=== PATIENT | female | born 1955 | race Caucasian/White ===

== ENCOUNTER 2019-08-02 10:54 | Outpatient (CLI) | payer MEDICARE, BC, SELFPAY ==
--- NOTE | 2019-08-02 11:12 | XR_ITS ---
WS: [id number] Bone mineral density performed on a ElastifileXA, 08/02/2019 Clinical data: OSTEOPOROSIS comparison study: DEXA scan, 07/01/2017. Findings: The first 4 lumbar vertebral bodies demonstrated the bone mineral density of 1.021 g/cm2 for a young adult T score of -1.3. Measurement of the left hip reveals a bone mineral density of 0.718 g/cm2 with a young adult T score of -2.3. Measurement of the right hip reveals the bone mineral density of 0.734 g/cm2 for young adult T score of -2.2. XR/XR DEXA axial skeleton* [id number] Impression: 1. Osteopenia of the lumbar spine and both hips. 2. Slight improvement compared to previous study.
== END 2019-08-02 10:55 | disposition home or self-care (01) ==
LOC: RADWPI 11:00
PROVIDERS: Family Provider Family Medicine; PCP Family Medicine; Referring Provider Family Medicine; Visit Provider Family Medicine
DX: M81.0 Age-related osteoporosis without current pathological fracture (principal); M85.88 Other specified disorders of bone density and structure, other site; M85.89 Other specified disorders of bone density and structure, multiple sites
CPT/HCPCS: 77080

== ENCOUNTER 2019-08-22 13:01 | Outpatient (CLI) | payer MEDICARE, BC, SELFPAY ==
--- NOTE | 2019-08-22 13:22 | CT_ITS ---
WS: [id number] CT SINUSES TECHNIQUE: Noncontrast CT of the paranasal sinuses with coronal and sagittal reformatted images. CLINICAL INFORMATION: CHRONIC SINUSITIS COMPARISON: None. DLP: 315.[address] scans at [facility] use at least one of these dose optimization techniques: automat ed exposure control; mA and/or kV adjustment per patient size (includes targeted exams where dose is matched to clinical indication); or iterative reconstruction. FINDINGS: Right to left nasal septal deviation measuring 3.2 mm. Frontal sinuses are well aerated. Trace mucosa l thickening ethmoid air cells. Mild narrowing of the ostiomeatal units bilaterally. Mild polypoid mu cosal thickening in the maxillary sinuses measuring less than 5 mm bilaterally. Sphenoid sinuses are patent. Mastoid air cells well aerated. Normal posterior nasopharynx. Partially visualized intracrani al contents are normal. CT/CT sinus wo con* [id number] IMPRESSION: 1. Mild right to left nasal septal deviation measuring 3.2 mm. 2. Ostiomeatal units are patent. 3. Mild mucosal thickening in the ethmoid air cells and maxillary sinuses. 4. No air-fluid levels. 5. Mastoid air cells are well aerated.
== END 2019-08-22 13:02 | disposition home or self-care (01) ==
LOC: RADWPI 13:07
PROVIDERS: Family Provider Family Medicine; PCP Family Medicine; Visit Provider Family Medicine
DX: J32.9 Chronic sinusitis, unspecified (principal); J34.2 Deviated nasal septum
CPT/HCPCS: 70486

== ENCOUNTER → 2019-09-06 15:49 | Outpatient (BNVA) | payer MEDICARE, BC, SELFPAY | PROVIDERS: Family Provider Family Medicine; PCP Family Medicine; Referring Provider Family Medicine; Visit Provider Otolaryngology | DX: J32.9 Chronic sinusitis, unspecified (principal); J34.2 Deviated nasal septum; J34.3 Hypertrophy of nasal turbinates; R09.82 Postnasal drip; J30.9 Allergic rhinitis, unspecified | CPT/HCPCS: 96372; 99214; J3301 ==

== ENCOUNTER 2020-08-02 07:45 | Outpatient (CLI) | payer MEDICARE, BC, SELFPAY ==
--- NOTE | 2020-08-02 07:50 | MM_ITS ---
WS: [id number] BILATERAL DIGITAL DIAGNOSTIC MAMMOGRAM MAMMOGRAPHY WITH CAD CLINICAL INFORMATION: DISCHARGE FROM LEFT NIPPLE COMPARISON: None. TECHNIQUE: Bilateral CC, MLO, and ML views. FINDINGS: The breasts are composed of heterogeneous fibroglandular density, which can limit the detection of sm all underlying mass lesions. Punctate and lucent centered calcifications. Breast parenchyma appears unchanged from previous. Ultrasound is pending ULTRASOUND BREAST LEFT TECHNIQUE: Ultrasound left breast focused area of concern. CLINICAL INFORMATION: DISCHARGE FROM LEFT NIPPLE COMPARISON: None. FINDINGS: Ultrasound left areola in the area of concern. No evidence of pathologic mass or lesion. A few dilate d ducts are visualized. No focal lesions to target for biopsy. No other significant findings. MM/[place] [id number] IMPRESSION: BI-RADS: 2-Benign FOLLOW UP: 1 Year Follow-up Recommend return to annual screening mammography.
== END 2020-08-02 07:46 | disposition home or self-care (01) ==
LOC: RADSHAW 07:48
PROVIDERS: Family Provider Family Medicine; PCP Family Medicine; Visit Provider Family Medicine
DX: N64.52 Nipple discharge (principal)
CPT/HCPCS: 76642; 77066

== ENCOUNTER 2021-05-27 06:00 | Outpatient (RCR) | payer MEDICARE, BC, SELFPAY | END 2021-06-25 23:59 | disposition home or self-care (01) | LOC: GPT 06:00 | PROVIDERS: PCP Family Medicine; Visit Provider Orthopaedic Surgery | DX: S80.02XD Contusion of left knee, subsequent encounter (principal); X58.XXXD Exposure to other specified factors, subsequent encounter | CPT/HCPCS: 97032; 97110; 97112; 97116; 97161; 97530; 97760 ==

== ENCOUNTER 2021-06-26 06:00 | Outpatient (RCR) | payer MEDICARE, BC, SELFPAY | END 2021-07-26 23:59 | disposition home or self-care (01) | LOC: GPT 06:00 | PROVIDERS: PCP Family Medicine; Visit Provider Orthopaedic Surgery | DX: S80.02XA Contusion of left knee, initial encounter (principal); X58.XXXA Exposure to other specified factors, initial encounter | CPT/HCPCS: 97110; 97140 ==

== ENCOUNTER 2021-07-11 12:57 | Outpatient (CLI) | payer MEDICARE, BC, SELFPAY | END 2021-07-11 12:58 | disposition home or self-care (01) | LOC: LAB 12:57 | PROVIDERS: PCP Family Medicine; Visit Provider Family Medicine | DX: K52.9 Noninfective gastroenteritis and colitis, unspecified (principal) | CPT/HCPCS: 87506 ==

== ENCOUNTER 2021-07-27 06:00 | Outpatient (RCR) | payer MEDICARE, BC, SELFPAY | END 2021-08-26 23:59 | disposition home or self-care (01) | LOC: GPT 06:00 | PROVIDERS: PCP Family Medicine; Visit Provider Orthopaedic Surgery | DX: S80.02XD Contusion of left knee, subsequent encounter (principal); X58.XXXD Exposure to other specified factors, subsequent encounter | CPT/HCPCS: 97110; 97112 ==

== ENCOUNTER 2021-08-05 11:04 | Outpatient (CLI) | payer MEDICARE, BC, SELFPAY ==
--- NOTE | 2021-08-05 11:24 | MM_ITS ---
WS: [id number] BILATERAL DIGITAL SCREENING MAMMOGRAPHY WITH CAD CLINICAL INFORMATION: SCREENING HISTORY: Screening mammogram. No current complaints. COMPARISON: August 02, 2020 TECHNIQUE: Bilateral CC and MLO views. FINDINGS: The breasts are composed of heterogeneous fibroglandular density tissue, which can limit the detectio n of small underlying mass lesions. Lucent centered calcifications right breast. Stable cluster calci fications outer right breast. No suspicious mass, asymmetry, calcifications, or architectural distort ion. No evidence of malignancy. MM/[place] [id number] IMPRESSION: BI-RADS: 2-Benign FOLLOW UP: 1 Year Follow-up Recommend return to annual screening mammography.
== END 2021-08-05 11:05 | disposition home or self-care (01) ==
PROVIDERS: PCP Family Medicine; Visit Provider Family Medicine
DX: Z12.31 Encounter for screening mammogram for malignant neoplasm of breast (principal)
CPT/HCPCS: 77067

== ENCOUNTER 2021-08-27 06:00 | Outpatient (RCR) | payer MEDICARE, BC, SELFPAY | END 2021-09-23 23:59 | disposition home or self-care (01) | LOC: GPT 06:00 | PROVIDERS: PCP Family Medicine; Visit Provider Orthopaedic Surgery | DX: S80.02XD Contusion of left knee, subsequent encounter (principal); X58.XXXD Exposure to other specified factors, subsequent encounter | CPT/HCPCS: 97110; 97112 ==

== ENCOUNTER 2022-09-17 13:50 | Outpatient (CLI) | payer MEDICARE, SELFPAY ==
--- NOTE | 2022-09-17 14:02 | MM_ITS ---
WS: [id number] VIEWS: MLO and CC views both breasts. 3D digital tomosynthesis is also included in this exam. Comparison made with prior exam of 03/10/2016, 03/17/2017, 04/15/2018, 08/02/2020, 08/05/2021.. Findings: There was no sign of mass, architectural distortion or suspicious calcification in either breast. Th e breasts are heterogeneously dense MM/[place] [id number] Impression: BI-RADS: 2-Benign FOLLOW-UP: 1 Year Follow-up This mammogram was also analyzed by the Computer Aided Detection System [employer].
== END 2022-09-17 13:51 | disposition home or self-care (01) ==
LOC: RAD 13:55
PROVIDERS: PCP Family Medicine; Visit Provider Family Medicine
DX: Z12.31 Encounter for screening mammogram for malignant neoplasm of breast (principal)
CPT/HCPCS: 77063; 77067

== ENCOUNTER 2022-11-07 13:49 | Outpatient (CLI) | payer MEDICARE, SELFPAY ==
--- NOTE | 2022-11-07 | CT_ITS ---
WS: [id number] CT ABDOMEN AND PELVIS WITH CONTRAST HISTORY: ABD PAIN, LEFT lower quadrant pain TECHNIQUE: Imaging performed of the abdomen and pelvis with IV contrast. Single phase imaging of the abdomen. Coronal and sagittal reformats are submitted. All CT scans at [facility] use at [address] one of these dose optimization techniques: automated exposure control; mA and/or kV adjustment per patient size (includes targeted exams where dose is matched to clinical indication); or iterative re construction. IV CONTRAST: Omnipaque 350; 100 mL IV. Oral contrast: Yes. DLP: 237.66 mGy.cm COMPARISON: None available. Lower thorax: Lung bases are clear. Heart is normal size. No hiatal hernia. Liver/biliary system: Normal size with no intrahepatic dilatation. Gallbladder: Normal. No gallstones or wall thickening. No pericholecystic fluid. Pancreas: Normal size pancreas and pancreatic duct. No adjacent inflammation. Spleen: Normal size spleen. No mass or infarct. Adrenal glands: Normal. Right kidney: Too small to characterize cortical hypodensity superior pole. No obstruction. Left kidney: No obstruction, too small to characterize hypodensity in the mid kidney. Aorta: Normal. Lymphadenopathy: None. Free fluid: None. GI tract: Well-distended stomach. No small bowel obstruction. Tortuous nonobstructing colon. Numerous diverticula in the sigmoid colon. No definite CT evidence for acute diverticulitis. Appendix is not definitely visualized. Abdominal wall: Unremarkable abdominal wall. No hernia. Pelvis: Distended urinary bladder. Uterus is midline and anteverted mildly heterogeneous. Area of dec reased attenuation along the lower uterine segment to the RIGHT of midline measures 1.9 x 1.6 cm. Thi s may be a fibroid. Bones: Mild RIGHT curvature lumbar spine. CT/CT abdomen pelvis w con* [id number] IMPRESSION: 1. Numerous diverticula in the sigmoid colon. No evidence for acute diverticul itis at this time. 2. Low-attenuation mass in the lower RIGHT uterine segment measuring 1.9 x 1.6 cm. This may be a fibroid. This can be further evaluated by transvaginal pelvi c ultrasound imaging. 3. No renal obstruction.
[2022-11-07 15:14] LABS: Blood Urea Nitrogen 10 mg/dL (8-23); Glomerular Filtration Rate 71.1 mL/min (90-130)
[2022-11-07] MEDS: iohexol 350 mg/mL 500 mL Btl (per mL) IV (15:18)
[2022-11-07] MEDS: iohexol 350 mg/mL 500 mL Btl (per mL) PO (15:19)
== END 2022-11-07 13:50 | disposition home or self-care (01) ==
LOC: RAD 13:53
PROVIDERS: PCP Family Medicine; Visit Provider Family Medicine
DX: R10.9 Unspecified abdominal pain (principal); K57.30 Diverticulosis of large intestine without perforation or abscess without bleeding
CPT/HCPCS: 74177; 82565; 84520; Q9967

== ENCOUNTER 2022-11-13 12:48 | Outpatient (CLI) | payer MEDICARE, SELFPAY ==
--- NOTE | 2022-11-13 13:05 | XR_ITS ---
WS: [id number] DEXA (DUAL ENERGY X-RAY ABSORPTIOMETRY) Bone mineral density was performed using a [employer] machine. HISTORY: POSTMENOPAUSAL COMPARISON: 08/02/2019 Lumbar spine BMD (L1-L4): 1.050 g/cm2 T score: -1.1 Z score: 1.1 Total hip BMD: Left: 0.722 g/cm2. T score: -2.3 Z score: -0.5 Right: 0.723 g/cm2. T score: -2.3 Z score: -0.5 10 year probability of a major osteoporotic fracture is 43.8%. Compared to the prior study from 08/02/2019. Lumbar spine bone mineral density has increased by 2.8%. Bilateral hips bone mineral density has decrease by 0.6%. XR/XR DEXA axial skeleton* [id number] IMPRESSION: OSTEOPENIA based upon the WHO classification for females. Significant increase in bone mineral density within the lumbar spine. No significant change within t he hips.
== END 2022-11-13 12:49 | disposition home or self-care (01) ==
PROVIDERS: PCP Family Medicine; Visit Provider Family Medicine
DX: Z78.0 Asymptomatic menopausal state (principal); M81.0 Age-related osteoporosis without current pathological fracture
CPT/HCPCS: 77080

== ENCOUNTER 2022-11-21 14:41 | Outpatient (CLI) | payer MEDICARE, SELFPAY ==
--- NOTE | 2022-11-21 14:49 | US_ITS ---
WS: [id number] ULTRASOUND PELVIS TECHNIQUE: Transvaginal. CLINICAL INFORMATION: MASS OF UTERUS : No. COMPARISON: CT abdomen pelvis November 07, 2022 FINDINGS: Previous CT scan reviewed. Uterus Orientation: Anteverted. Size: 4.9 x 3.1 x 2.2 cm Masses: Masslike soft tissue thickening with internal cystic change involving the lower uterine segme nt and cervix. This corresponds to findings on the prior CT. This is indeterminant and neoplasm not e xcluded. Recommend further evaluation with cystoscopy. A few associated calcifications in this area. In addition, simple appearing cyst RIGHT cervix likely incidental nabothian cyst measuring 2.1 x 1.3 CM. Endometrium: 2.2 mm Adnexa: Neither ovary is visualized. Free fluid: None. Other findings: None. US/US transvaginal [id number] IMPRESSION: 1. Irregular masslike polypoid thickening involving the lower uterine segment and cervix with internal cavitation. This corresponds to the findings on the pr ior CT. This is indeterminant and neoplasm not excluded. Recommend further eval uation with hysteroscopy. 2. Simple appearing cyst in the RIGHT cervix likely incidental nabothian cyst measuring 2.1 x 1.3 CM. 3. Normal fundal endometrial thickness measuring 2.2 mm.
== END 2022-11-21 14:42 | disposition home or self-care (01) ==
PROVIDERS: PCP Family Medicine; Visit Provider Family Medicine
DX: N85.8 Other specified noninflammatory disorders of uterus (principal)
CPT/HCPCS: 76830

== ENCOUNTER 2023-02-03 10:10 | Outpatient (CLI) | payer MEDICARE, SELFPAY ==
--- NOTE | 2023-02-03 10:15 | MRR_ITS ---
PROCEDURE INFORMATION: Exam: MR Pelvis Without Contrast; Uterus and Adnexa Exam date and time: 02/03/2023 11:23 AM Age: 67 years old Clinical indication: Abnormal findings; Abnormal imaging test; Patient HX: Abnormal imaging, pain in RT quadrant of abdomen; Additional info: N85.8 - other specified noninflammatory disorders of uterus TECHNIQUE: Imaging protocol: Magnetic resonance imaging of the pelvis without contrast. Exam focused on the uterus and adnexa. COMPARISON: 1. CT abdomen pelvis w con* [id number] 11/07/2022 3:17 PM 2. US transvaginal [id number] 11/21/2022 3:38 PM FINDINGS: Uterus: Lower anterior uterine cervical mildly T2 hyperintense lesion measuring approximately 17 x 10 x 18 mm (craniocaudal, AP, transverse). Contiguous lesion immediately superior to this on the right bulging the right lateral uterine cervical wall measuring 12.6 x 15.6 x 15.9 mm (craniocaudal, AP, transverse). This 2nd lesion demonstrates more homogeneous T1 hyperintense signal (series 4, image 15), and likely represents an inspissated uterine cervical nabothian cyst (and correlating with a cyst on the transvaginal sonogram). An additional fluid signal 4.1 mm nabothian cyst is present. No abnormality of the vagina identified. Marginal blurring of the uterine junctional zone. Posterior right uterine fundal subserosal 7.4 mm T2 hypointensity. Right ovary/adnexa: Right ovarian 14 mm physiologic follicle. Left ovary/adnexa: Unremarkable. Intraperitoneal space: No free fluid. Soft tissues: Unremarkable. Bladder/urethra: 7.4 mm paraurethral cyst. Bowel: Sigmoid and distal descending colonic diverticula are present without evidence of diverticulitis. Bones/joints: L5-S1 degenerative disc disease. MR/MR pelvis wo con* [id number] IMPRESSION: 1. Uterine cervical lesion consistent with cervical carcinoma (stage IB1). 2. Findings suggestive of mild uterine adenomyosis. 3. Small uterine fundal subserosal leiomyoma. 4. Diverticulosis.
== END 2023-02-03 10:11 | disposition home or self-care (01) ==
LOC: RAD 10:11
PROVIDERS: PCP Family Medicine; Visit Provider Obstetrics & Gynecology
DX: N85.8 Other specified noninflammatory disorders of uterus (principal); R93.89 Abnormal findings on diagnostic imaging of other specified body structures; D25.2 Subserosal leiomyoma of uterus; K57.30 Diverticulosis of large intestine without perforation or abscess without bleeding
CPT/HCPCS: 72195

== ENCOUNTER → 2023-02-04 10:40 | Outpatient (BNVA) | payer MEDICARE, SELFPAY | PROVIDERS: PCP Family Medicine; Visit Provider Obstetrics & Gynecology | DX: Z12.4 Encounter for screening for malignant neoplasm of cervix (principal) | CPT/HCPCS: 87624 ==

== ENCOUNTER → 2023-03-26 15:27 | Outpatient (BNVA) | payer MEDICARE, SELFPAY | PROVIDERS: PCP Family Medicine; Visit Provider Nurse Practitioner Family | DX: L57.0 Actinic keratosis (principal); L81.4 Other melanin hyperpigmentation; D22.5 Melanocytic nevi of trunk; L85.3 Xerosis cutis; L57.8 Other skin changes due to chronic exposure to nonionizing radiation | CPT/HCPCS: 17000; 17003; 99213 ==

== ENCOUNTER 2023-10-19 06:00 | Outpatient (RCR) | payer MEDICARE, SELFPAY | END 2023-10-25 23:59 | disposition home or self-care (01) | LOC: GPT 06:00 | PROVIDERS: Visit Provider Family Medicine | DX: M67.834 Other specified disorders of tendon, left wrist (principal) | CPT/HCPCS: 97110; 97162 ==

== ENCOUNTER 2023-10-26 06:00 | Outpatient (RCR) | payer MEDICARE, SELFPAY | END 2023-11-24 23:59 | disposition home or self-care (01) | LOC: GPT 06:00 | PROVIDERS: Visit Provider Family Medicine | DX: M77.8 Other enthesopathies, not elsewhere classified (principal) | CPT/HCPCS: 97110; 97530 ==

== ENCOUNTER 2023-11-25 06:00 | Outpatient (RCR) | payer MEDICARE, SELFPAY | END 2023-12-25 23:59 | disposition home or self-care (01) | LOC: GPT 06:00 | PROVIDERS: Visit Provider Family Medicine | DX: M67.834 Other specified disorders of tendon, left wrist (principal) | CPT/HCPCS: 97110; 97530 ==

== ENCOUNTER 2023-12-26 06:00 | Outpatient (RCR) | payer MEDICARE, SELFPAY | END 2024-01-24 23:59 | disposition home or self-care (01) | LOC: GPT 06:00 | PROVIDERS: Visit Provider Family Medicine | DX: M77.8 Other enthesopathies, not elsewhere classified (principal) | CPT/HCPCS: 97110; 97112; 97140; 97164; 97530 ==

== ENCOUNTER 2024-01-08 10:01 | Outpatient (CLI) | payer MEDICARE, SELFPAY ==
--- NOTE | 2024-01-08 10:10 | MM_ITS ---
WS: [id number] BILATERAL SCREENING DIGITAL TOMOSYNTHESIS MAMMOGRAM WITH CAD HISTORY: SCREENING COMPARISON: 09/17/2022, 08/05/2021 Bilateral CC and MLO views with tomosynthesis and synthetic mammography submitted. Computer aided det ection analyzed. Breast composition: The breasts are heterogeneously dense, which may obscure small masses. No suspici ous masses, microcalcifications or architectural distortion. Benign calcifications in each breast. MM/[place] [id number] IMPRESSION: BI-RADS: 2-Benign FOLLOW UP: 1 Year Follow-up
== END 2024-01-08 10:02 | disposition home or self-care (01) ==
LOC: RAD 10:02
PROVIDERS: Visit Provider Family Medicine
DX: Z12.31 Encounter for screening mammogram for malignant neoplasm of breast (principal); R92.333 Mammographic heterogeneous density, bilateral breasts; R92.1 Mammographic calcification found on diagnostic imaging of breast
CPT/HCPCS: 77063; 77067

== ENCOUNTER 2024-01-25 06:00 | Outpatient (RCR) | payer MEDICARE, SELFPAY | END 2024-02-24 23:59 | disposition home or self-care (01) | LOC: GPT 06:00 | PROVIDERS: Visit Provider Family Medicine | DX: M77.8 Other enthesopathies, not elsewhere classified (principal) | CPT/HCPCS: 97110; 97140 ==

== ENCOUNTER 2024-02-19 06:00 | Outpatient (RCR) | payer MEDICARE, SELFPAY | END 2024-02-24 23:59 | disposition home or self-care (01) | LOC: GPT 06:00 | PROVIDERS: Visit Provider Family Medicine | DX: M54.50 Low back pain, unspecified (principal) | CPT/HCPCS: 97110; 97112; 97140; 97161 ==

== ENCOUNTER 2024-02-25 06:00 | Outpatient (RCR) | payer MEDICARE, SELFPAY | END 2024-03-26 23:59 | disposition home or self-care (01) | LOC: GPT 06:00 | PROVIDERS: Visit Provider Family Medicine | DX: M54.50 Low back pain, unspecified (principal) | CPT/HCPCS: 97110; 97112; 97140 ==

== ENCOUNTER 2024-03-27 06:00 | Outpatient (RCR) | payer MEDICARE, SELFPAY | END 2024-04-25 23:59 | disposition home or self-care (01) | LOC: GPT 06:00 | PROVIDERS: Visit Provider Family Medicine | DX: M54.50 Low back pain, unspecified (principal) | CPT/HCPCS: 97110; 97112; 97140; 97164; 97530 ==

== ENCOUNTER → 2024-04-20 09:45 | Outpatient (BNVA) | payer MEDICARE, SELFPAY | PROVIDERS: Visit Provider Nurse Practitioner Family | DX: L81.4 Other melanin hyperpigmentation (principal); D22.5 Melanocytic nevi of trunk; L85.3 Xerosis cutis; L57.8 Other skin changes due to chronic exposure to nonionizing radiation; L57.0 Actinic keratosis; D48.5 Neoplasm of uncertain behavior of skin; L91.8 Other hypertrophic disorders of the skin | CPT/HCPCS: 11102; 17000; 99213 ==

== ENCOUNTER → 2024-05-09 13:53 | Outpatient (BNVA) | payer MEDICARE, SELFPAY | PROVIDERS: Visit Provider Dermatology | DX: C44.619 Basal cell carcinoma of skin of left upper limb, including shoulder (principal); C44.612 Basal cell carcinoma of skin of right upper limb, including shoulder | CPT/HCPCS: 11602; 13121; 17261 ==

== ENCOUNTER 2024-05-13 06:00 | Outpatient (RCR) | payer MEDICARE, SELFPAY | END 2024-05-26 23:59 | disposition home or self-care (01) | LOC: GPT 06:00 | PROVIDERS: Visit Provider Family Medicine | DX: M54.50 Low back pain, unspecified (principal) | CPT/HCPCS: 97110; 97112; 97530 ==

== ENCOUNTER → 2024-05-23 11:00 | Outpatient (BNVA) | payer MEDICARE, SELFPAY | PROVIDERS: Visit Provider Dermatology | DX: R22.9 Localized swelling, mass and lump, unspecified (principal) | CPT/HCPCS: 99213 ==

== ENCOUNTER → 2024-05-27 13:53 | Outpatient (BNVA) | payer MEDICARE, SELFPAY | PROVIDERS: PCP Family Medicine; Visit Provider Nurse Practitioner Family | DX: Z20.822 Contact with and (suspected) exposure to COVID-19 (principal) | CPT/HCPCS: 87426 ==

== ENCOUNTER → 2024-11-30 13:33 | Outpatient (BNVA) | payer MEDICARE, SELFPAY | PROVIDERS: PCP Family Medicine; Visit Provider Nurse Practitioner Family | DX: S40.861A Insect bite (nonvenomous) of right upper arm, initial encounter (principal); X58.XXXA Exposure to other specified factors, initial encounter; L57.8 Other skin changes due to chronic exposure to nonionizing radiation; Z85.828 Personal history of other malignant neoplasm of skin | CPT/HCPCS: 99213 ==

== ENCOUNTER 2025-02-08 10:27 | Outpatient (CLI) | payer MEDICARE, SELFPAY ==
--- NOTE | 2025-02-08 10:33 | MM_ITS ---
WS: [id number] BILATERAL 3D TOMOSYNTHESIS DIGITAL SCREENING MAMMOGRAPHY WITH CAD CLINICAL INFORMATION: SCREENING HISTORY: Screening mammogram. No current complaints. COMPARISON: None. TECHNIQUE: Bilateral CC and MLO views. FINDINGS: The breasts are composed of heterogeneous fibroglandular density tissue, which can limit the detection of small underlying mass lesions. No suspicious mass, asymmetry, calcifications, or architectural distortion. No evidence of malignancy. Benign calcifications RIGHT breast MM/MM scr tomosynthesis [id number] IMPRESSION: DENSITY: The breasts are heterogeneously dense, which may obscure small masses. BI-RADS: 2 - Benign FOLLOW UP: 1 Year Follow-up Recommend return to annual screening mammography.
== END 2025-02-08 10:28 | disposition home or self-care (01) ==
LOC: RAD 10:28
PROVIDERS: PCP Family Medicine; Visit Provider Family Medicine
DX: Z12.31 Encounter for screening mammogram for malignant neoplasm of breast (principal); R92.333 Mammographic heterogeneous density, bilateral breasts; R92.1 Mammographic calcification found on diagnostic imaging of breast
CPT/HCPCS: 77063; 77067

== ENCOUNTER → 2025-06-08 11:11 | Outpatient (BNVA) | payer MEDICARE, SELFPAY | PROVIDERS: PCP Family Medicine; Visit Provider Nurse Practitioner Family | DX: L57.8 Other skin changes due to chronic exposure to nonionizing radiation (principal); L81.4 Other melanin hyperpigmentation; L72.0 Epidermal cyst; D48.5 Neoplasm of uncertain behavior of skin; L57.0 Actinic keratosis | CPT/HCPCS: 10040; 11102; 17000; 99213 ==